=== PATIENT | male | born 1985 | race Caucasian/White ===

== ENCOUNTER 2019-04-21 23:57 | Emergency (ER) | payer SELFPAY ==
[~2019-04-21] VITALS: Ht 182.9 cm; Wt 77.1 kg
--- NOTE | 2019-04-22 00:43 | PHYS DOC ---
Past Medical History Past Medical History: No Pertinent History Past Surgical History: Other (strabismus corrective surgery) Smoking: Cigarettes, 1 Pack Per Day Alcohol Use: None Drug Use: Marijuana (occassionally), Methamphetamine, Opiates (heroin) Adult General Chief Complaint Chief Complaint: OVERDOSE HPI HPI Mr. Emanuel is a 33yo homeless M w/ PMH significant for substance abuse and presents via EMS due to accidental overdose from heroin use. He admits to injecting "0.02" of heroin into an upper extremity at the [facility] this evening. He was found unconscious in the bathroom at which point EMS was contacted. Patient was responsive to EMS after they administered Narcan. The patient vomited prior to arrival to [facility] but no blood was visualized. He has a mild headache, feels clammy, and it feels like his heart is racing. Admits to using methamphetamine Tuesday afternoon. Denies suicidality or homicidal ideation. Review of Systems Review of Systems Constitutional: Reports feeling clammy. Denies fever or chills. Eyes: Denies redness or eye pain HENT: Denies nasal congestion or sore throat Respiratory: Denies cough or shortness of breath Cardiovascular: Reports palpitations. Denies chest pain. GI: Reports nausea and vomiting. Denies abdominal pain or hematemesis. : Denies dysuria or hematuria Musculoskeletal: Denies back pain or joint pain Integument: Denies rash or skin lesions Neurologic: Reports mild headache. Denies focal weakness or sensory changes Complete systems were reviewed and found to be within normal limits, except as documented in this note. Current Medications Current Medications Current Medications Medications (Trade) Dose Ordered Sig/Alvin Start Time Stop Time Status Last Admin Dose Admin Neomycin/ Polymyxin/ Bacitracin (Triple Antibiotic Ointment) 1 pkt 1X ONCE 04/22/19 03:30 04/22/19 03:31 DC Ondansetron HCl (Zofran) 4 mg 1X ONCE 04/22/19 01:00 04/22/19 01:01 DC 04/22/19 00:59 4 MG Sodium Chloride 1,000 ml @ 1,000 mls/hr 1X ONCE 04/22/19 01:00 04/22/19 01:59 DC 04/22/19 00:58 1,000 MLS/HR Allergies Allergies Allergies Coded Allergies Type Severity Reaction Last Updated Verified No Known Drug Allergies 04/22/19 No Physical Exam Physical Exam Constitutional: Well developed, well nourished, no acute distress HENT: Normocephalic, atraumatic, oropharynx moist Eyes: PERRL, EOMI, conjunctiva normal, no discharge Neck: Normal range of motion, no tenderness, supple, no lymphadenopathy Cardiovascular: heart regular rate and rhythm w/o gallops, rubs, or murmurs. Lungs & Thorax: clear to auscultation b/l w/o rales, rhonchi, or wheezes Abdomen: Soft, no tenderness, non-distended Skin: cool, moist, no erythema, no rash, small callus to ball of foot bilateral with small fissure on left Extremities: No tenderness, ROM intact, no edema Neurologic: Alert and oriented X 3, normal motor function, normal sensory function, no focal deficits noted Psychologic: Affect normal, judgement normal Current Patient Data Vital Signs Vital Signs Date Time Temp Pulse Resp B/P (MAP) Pulse Ox O2 Delivery O2 Flow Rate FiO2 04/22/19 02:33 98 28 121/92 (102) 92 Nasal Cannula 2.0 Lab Values Laboratory Tests Test 04/22/19 00:45 White Blood Count 13.6 x10^3/uL (4.0-11.0) H Red Blood Count 4.92 x10^6/uL (4.30-5.70) Hemoglobin 14.4 g/dL (13.0-17.5) Hematocrit 42.8 % (39.0-53.0) Mean Corpuscular Volume 87 fL (79-100) Mean Corpuscular Hemoglobin 29 pg (25-35) Mean Corpuscular Hemoglobin Concent 34 g/dL (31-37) Red Cell Distribution Width 15.2 % (11.5-14.5) H Platelet Count 433 x10^3/uL (140-400) H Neutrophils (%) (Auto) 83 % (31-73) H Lymphocytes (%) (Auto) 10 % (24-48) L Monocytes (%) (Auto) 6 % (0-9) Eosinophils (%) (Auto) 1 % (0-3) Basophils (%) (Auto) 1 % (0-3) Neutrophils # (Auto) 11.2 x10^3/uL (1.8-7.7) H Lymphocytes # (Auto) 1.3 x10^3/uL (1.0-4.8) Monocytes # (Auto) 0.8 x10^3/uL (0.0-1.1) Eosinophils # (Auto) 0.1 x10^3/uL (0.0-0.7) Basophils # (Auto) 0.1 x10^3/uL (0.0-0.2) Sodium Level 141 mmol/L (136-145) Potassium Level 3.6 mmol/L (3.5-5.1) Chloride Level 102 mmol/L (98-107) Carbon Dioxide Level 29 mmol/L (21-32) Anion Gap 10 (6-14) Blood Urea Nitrogen 13 mg/dL (8-26) Creatinine 1.0 mg/dL (0.7-1.3) Estimated GFR (Cockcroft-Gault) 85.0 BUN/Creatinine Ratio 13 (6-20) Glucose Level 161 mg/dL (70-99) H Calcium Level 8.8 mg/dL (8.5-10.1) Magnesium Level 2.0 mg/dL (1.8-2.4) Total Bilirubin 0.4 mg/dL (0.2-1.0) Aspartate Amino Transferase (AST) 17 U/L (15-37) Alanine Aminotransferase (ALT) 23 U/L (16-63) Alkaline Phosphatase 110 U/L (46-116) Total Protein 7.9 g/dL (6.4-8.2) Albumin 3.6 g/dL (3.4-5.0) Albumin/Globulin Ratio 0.8 (1.0-1.7) L Ethyl Alcohol Level < 10 mg/dL (0-10) Laboratory Tests 04/22/19 00:45 Laboratory Tests 04/22/19 00:45 EKG EKG EKG obtained @ 0038 and read @ 0043. RBBB. Negative for ST changes. QRS 100ms. QT 356ms and QTc 456ms.[] Radiology/Procedures Radiology/Procedures [] Course & Med Decision Making Course & Med Decision Making Pertinent Labs and Imaging studies reviewed. (See chart for details) Mr. Emanuel presented via EMS from heroin overdose. EKG negative for ST changes; QRS 100ms and QT 356ms. Narcan given by EMS. Patient monitored in department. Labs obtained and posted to chart. IVF hydration given. Symptomatic treatment given with interval improvement. Patient stable for discharge with outpatient follow-up with PCP. Discussed findings and plan with patient and friend, who acknowledge understanding and agreement. [] Dragon Disclaimer Dragon Disclaimer This electronic medical record was generated, in whole or in part, using a voice recognition dictation system. Departure Departure Impression: Primary Impression: Accidental heroin overdose Additional Impression: Foot callus Disposition: HOME, SELF-CARE Condition: STABLE Patient Instructions: Corns and Calluses-SportsMed, Drug Abuse and Addiction- [facility], Drug Abuse, FAQs, Heroin Abuse and Withdrawal Scripts Ondansetron (ONDANSETRON ODT) 4 Mg Tab.rapdis 1 TAB PO PRN Q6-8HRS PRN for NAUSEA, #16 TAB Prov: JENNIFER ESPINOZA DO 04/22/19 Problem Qualifiers Primary Impression: Accidental heroin overdose Encounter type: initial encounter Qualified Codes: T40.1X1A - Poisoning by heroin, accidental (unintentional), initial encounter JENNIFER ESPINOZA DO Apr 22, 2019 00:43
[2019-04-22] MEDS ORDERED: IV NORMAL SALINE 1000ML BAG 1,000 ML IV ONE (01:00)
[2019-04-22] MEDS ORDERED: ONDANSETRON PF 4 MG/2 ML VIAL. IVP ONE (01:00)
[2019-04-22 01:05] LABS: BASO # 0.1 x10^3/uL (0.0-0.2); BASO % 1 % (0-3); EOS # 0.1 x10^3/uL (0.0-0.7); EOS % 1 % (0-3); HEMATOCRIT 42.8 % (39.0-53.0); HEMOGLOBIN 14.4 g/dL (13.0-17.5); LYMPH # 1.3 x10^3/uL (1.0-4.8); LYMPH % 10 % (24-48); MEAN CORPUSCULAR HEMOGLOBIN 29 pg (25-35); MEAN CORPUSCULAR HGB CONC 34 g/dL (31-37); MEAN CORPUSCULAR VOLUME 87 fL (79-100); MONO # 0.8 x10^3/uL (0.0-1.1); MONO % 6 % (0-9); NEUT # 11.2 x10^3/uL (1.8-7.7); NEUT % 83 % (31-73); PLATELET COUNT 433 x10^3/uL (140-400); RED BLOOD COUNT 4.92 x10^6/uL (4.30-5.70); RED CELL DISTRIBUTION WIDTH 15.2 % (11.5-14.5); WHITE BLOOD COUNT 13.6 x10^3/uL (4.0-11.0)
[2019-04-22 01:11] LABS: CALCIUM 8.8 mg/dL (8.5-10.1); POTASSIUM 3.6 mmol/L (3.5-5.1)
[2019-04-22 01:17] LABS: ALBUMIN 3.6 g/dL (3.4-5.0); ALBUMIN/GLOBULIN RATIO 0.8 (1.0-1.7); TOTAL BILIRUBIN 0.4 mg/dL (0.2-1.0); TOTAL PROTEIN 7.9 g/dL (6.4-8.2)
[2019-04-22 02:33] VITALS: BP 121/92
[2019-04-22] MEDS ORDERED: ONDA4TAB12 PO (02:51)
[2019-04-22] MEDS ORDERED: NEOMY/BACITR/POLYMYXIN OINT PACKET. TP ONE (03:30)
--- NOTE | 2019-04-22 13:42 | EKG ---
[facility] [address] [place] [address] Test Date: 2019-04-22 Test Time: 00:38:32 Pat Name: BI CRABTREE Department: Room: Gender: M Collar [employer] Creaser: : 1985 Requested By: JENNIFER ESPINOZA Order Number: [id number] Reading MD: Measurements Intervals [place] Rate: 97 P: 52 [place]: 152 QRS: 69 QRSD: 100 T: 64 QT: 356 QTc: 456 Interpretive Statements SINUS RHYTHM S1,S2,S3 PATTERN INCOMPLETE RIGHT BUNDLE BRANCH BLOCK QRS(T) CONTOUR ABNORMALITY CONSIDER ANTEROSEPTAL MYOCARDIAL DAMAGE POSSIBLY ABNORMAL ECG RI6.01 No previous ECG available for comparison
== END 2019-04-22 03:25 | disposition home or self-care (01) ==
LOC: ER 23:57
DX: T40.1X1A Poisoning by heroin, accidental (unintentional), initial encounter (principal); L84 Corns and callosities; R11.2 Nausea with vomiting, unspecified; R51 Headache; R00.0 Tachycardia, unspecified; F17.210 Nicotine dependence, cigarettes, uncomplicated; Y92.89 Other specified places as the place of occurrence of the external cause
CPT/HCPCS: 36415; 80053; 83735; 85025; 93005; 96361; 96374; 99285; G0480; J2405; J7030

== ENCOUNTER 2020-10-14 15:53 | Emergency (ER) | payer SELFPAY ==
[~2020-10-14] VITALS: Ht 182.9 cm; Wt 82.0 kg
[2020-10-14 15:53] VITALS: BP 149/73
[~2020-10-14 15:53] MED LIST: ONDA4TAB12 PO
--- NOTE | 2020-10-14 16:01 | PHYS DOC ---
Past Medical History Past Medical History: No Pertinent History Past Surgical History: Other Additional Past Surgical Histo: ONLY SURGERY WAS AN EYE SURGERY A CHILD Smoking Status: Current Every Day Smoker Alcohol Use: None Drug Use: Marijuana, Methamphetamine, Opiates General Adult EDM: Chief Complaint: OTHER COMPLAINTS HPI: HPI: Patient is a 35 year old male who was brought here by EMS after he was caught s hoplifting at [employer]. Patient told security there when he was arrested that he felt dizzy. EMS were called to take him here for evaluation. Patient denies any chest pain, no abdominal pain, no nausea vomiting. Patient denied headache, no cough, no fever. Patient denies suicidal ideation, denies homicidal ideation. Review of Systems: Review of Systems: Constitutional: Denies fever or chills. [] Eyes: Denies change in visual acuity. [] HENT: Denies nasal congestion or sore throat. [] Respiratory: Denies cough or shortness of breath. [] Cardiovascular: Denies chest pain or edema. [] GI: Denies abdominal pain, nausea, vomiting, bloody stools or diarrhea. [] : Denies dysuria. [] Musculoskeletal: Denies back pain or joint pain. [] Integument: Denies rash. [] Neurologic: Denies headache, focal weakness or sensory changes. [] Endocrine: Denies polyuria or polydipsia. [] Lymphatic: Denies swollen glands. [] Psychiatric: Denies depression or anxiety. [] Heart Score: C/O Chest Pain: N/A Risk Factors: Risk Factors: DM, Current or recent (<one month) smoker, HTN, HLP, family history of CAD, obesity. Risk Scores: Score 0 - 3: 2.5% MACE over next 6 weeks - Discharge Home Score 4 - 6: 20.3% MACE over next 6 weeks - Admit for Clinical Observation Score 7 - 10: 72.7% MACE over next 6 weeks - Early Invasive Strategies Allergies: Allergies: Allergies Coded Allergies Type Severity Reaction Last Updated Verified No Known Drug Allergies 04/22/19 No Physical Exam: PE: Constitutional: Well developed, well nourished, no acute distress, non-toxic appearance. [] HENT: Normocephalic, atraumatic, bilateral external ears normal, oropharynx moist, no oral exudates, nose normal. [] Eyes: PERRLA, EOMI, conjunctiva normal, no discharge. [] Neck: Normal range of motion, no tenderness, supple, no stridor. [] Cardiovascular:Heart rate regular rhythm, no murmur [] Lungs & Thorax: Bilateral breath sounds clear to auscultation [] Abdomen: Bowel sounds normal, soft, no tenderness, no masses, no pulsatile m asses. [] Skin: Warm, dry, no erythema, no rash. [] Back: No tenderness, no CVA tenderness. [] Extremities: No tenderness, no cyanosis, no clubbing, ROM intact, no edema. [] Neurologic: Alert and oriented X 3, normal motor function, normal sensory function, no focal deficits noted. [] Psychologic: Affect normal, judgement normal, mood normal. [] EKG: EKG: [] Radiology/Procedures: Radiology/Procedures: [] Course & Med Decision Making: Course & Med Decision Making Pertinent Labs and Imaging studies reviewed. (See chart for details) Patient presented to ER due to dizziness after he was arrested for shoplifting. His blood sugar was normal, his vital signs were stable. Patient will be discharged into police custody, there is no need for further evaluation. Jenise Disclaimer: Jenise Disclaimer: This electronic medical record was generated, in whole or in part, using a voice recognition dictation system. Departure Departure Impression: Primary Impression: Dizziness Disposition: 01 HOME / SELF CARE / HOMELESS Condition: STABLE Referrals: NO PCP (PCP) Patient Instructions: TARIK Emanuel DO Oct 14, 2020 16:01
== END 2020-10-14 17:17 | disposition home or self-care (01) ==
LOC: ER 15:53
DX: R42 Dizziness and giddiness (principal); F17.210 Nicotine dependence, cigarettes, uncomplicated
CPT/HCPCS: 82962; 99283